=== PATIENT | female | born 1945 | race Two or more races ===

== ENCOUNTER 2020-01-03 09:47 | Outpatient (CLI) | payer OTHER ==
[~2020-01-03 09:47] MED LIST: BTREX; DICLOFENAC POTA50 MG; FEXOFENADINE H180 MG; FLONASE16 G1 NS; GABAPENTIN800 MG; LOSARTAN POTASS50 MG; MAXIMUM D310000 UNIT; ORPHENADRINE C100 MG; SYNTHROID75 MCG
== END 2020-01-03 12:04 | disposition home or self-care (01) ==
LOC: RAD 09:47
PROVIDERS: ATTEND Internal Medicine Cardiovascular Disease
DX: M12.811 Other specific arthropathies, not elsewhere classified, right shoulder (principal)

== ENCOUNTER 2020-01-05 10:10 | Outpatient (CLI) | payer OTHER | END 2020-01-05 10:16 | disposition home or self-care (01) | LOC: SONOGRAMA 10:10 → MAMO-SONO 10:15 → SONOGRAMA 10:16 | PROVIDERS: ATTEND Internal Medicine Cardiovascular Disease | DX: M12.811 Other specific arthropathies, not elsewhere classified, right shoulder (principal) ==

== ENCOUNTER 2020-09-25 14:12 | Outpatient (CLI) | payer OTHER | END 2020-09-25 14:19 | disposition home or self-care (01) | LOC: RAD 14:12 | PROVIDERS: ATTEND Orthopaedic Surgery | DX: M25.561 Pain in right knee (principal); M25.562 Pain in left knee ==

== ENCOUNTER 2020-11-14 16:24 | Emergency (ER) | payer OTHER ==
[~2020-11-14] VITALS: Ht 149.9 cm; Wt 59.0 kg
== END 2020-11-14 20:38 | disposition home or self-care (01) ==
LOC: ER 16:24
DX: M72.2 Plantar fascial fibromatosis (principal)

== ENCOUNTER 2021-06-04 14:42 | Outpatient (CLI) | payer OTHER | END 2021-06-04 14:52 | disposition home or self-care (01) | LOC: SONOGRAMA 14:42 | DX: M71.21 Synovial cyst of popliteal space [Baker], right knee (principal); S83.281A Other tear of lateral meniscus, current injury, right knee, initial encounter ==

== ENCOUNTER 2022-04-29 12:43 | Outpatient (CLI) | payer OTHER ==
[~2022-04-29 12:43] MED LIST changes: +MONTELUKAST SOD10 MG; +NORVASC2.5 M1; +ROSUVASTATIN CAL5 MG
== END 2022-04-29 12:48 | disposition home or self-care (01) ==
LOC: RAD 12:43
PROVIDERS: ATTEND Orthopaedic Surgery
DX: M25.561 Pain in right knee (principal); M25.562 Pain in left knee

== ENCOUNTER 2022-07-24 14:58 | Outpatient (CLI) | payer OTHER | END 2022-07-24 15:07 | disposition home or self-care (01) | LOC: SONOGRAMA 14:58 | PROVIDERS: ATTEND Obstetrics & Gynecology | DX: E06.9 Thyroiditis, unspecified (principal) ==

== ENCOUNTER 2022-11-20 11:23 | Outpatient (CLI) | payer OTHER | END 2022-11-20 11:31 | disposition home or self-care (01) | LOC: RAD 11:23 | PROVIDERS: ATTEND Internal Medicine Cardiovascular Disease | DX: M12.9 Arthropathy, unspecified (principal) ==

== ENCOUNTER 2023-01-22 10:06 | Outpatient (CLI) | payer OTHER | END 2023-01-22 10:14 | disposition home or self-care (01) | LOC: SONOGRAMA 10:06 | PROVIDERS: ATTEND Physical Medicine & Rehabilitation Pediatric Rehabilitation Medicine | DX: M75.112 Incomplete rotator cuff tear or rupture of left shoulder, not specified as traumatic (principal); M65.4 Radial styloid tenosynovitis [de Quervain] ==

== ENCOUNTER 2024-02-10 14:36 | Outpatient (CLI) | payer OTHER | END 2024-02-10 14:47 | disposition home or self-care (01) | LOC: RAD 14:36 | PROVIDERS: ATTEND Internal Medicine Cardiovascular Disease | DX: J44.9 Chronic obstructive pulmonary disease, unspecified (principal) ==

== ENCOUNTER 2024-02-10 15:04 | Outpatient (CLI) | payer OTHER | END 2024-02-10 15:08 | disposition home or self-care (01) | LOC: EKG 15:04 | PROVIDERS: ATTEND Internal Medicine Cardiovascular Disease | DX: I10 Essential (primary) hypertension (principal) ==